=== PATIENT | female | born 1985 | race Caucasian/White ===

== ENCOUNTER → 2018-11-11 | Outpatient (CLI) | payer OTHER ==
--- NOTE | 2018-11-11 16:06 | Diagnostic Imaging Report ---
PROCEDURE: MRI lumbar spine. TECHNIQUE: Multiplanar, multisequence MRI of the lumbar spine was performed without contrast. INDICATION: Low back pain with right buttock radiculopathy Vertebral body height and alignment appear normal. The vertebral bodies have normal signal characteristics. There are no intrinsic cord abnormality is seen. The T12-L1 disc space is narrowed with desiccation of the disc and concentric bulging of annulus. The L1-L2 disc space is slightly narrowed with minimal desiccation and bulging of the annulus. The remainder of the lumbar disc spaces appear normal. Impression: Degenerative changes at T12-L1 and L1-L2. There is no disc herniation or spinal stenosis. Dictated by: Dictated on workstation # [id number]
== END ==
LOC: RAD 15:19
PROVIDERS: ATTEND Nurse Practitioner
DX: Z04.2 Encounter for examination and observation following work accident (principal); M47.26 Other spondylosis with radiculopathy, lumbar region; M47.25 Other spondylosis with radiculopathy, thoracolumbar region; S39.012D Strain of muscle, fascia and tendon of lower back, subsequent encounter; F90.8 Attention-deficit hyperactivity disorder, other type; F31.9 Bipolar disorder, unspecified; M94.0 Chondrocostal junction syndrome [Tietze]; W18.31XD Fall on same level due to stepping on an object, subsequent encounter
CPT/HCPCS: 72148